=== PATIENT | male | born 1950 | race Caucasian/White ===

== ENCOUNTER → 2024-01-01 08:00 | Outpatient (REF) | payer OTHER, SELFPAY | LOC: HWRAD 08:00 | PROVIDERS: ATTENDING PHYSICIAN Student in an Organized Health Care Education/Training Program; FAMILY PHYSICIAN Family Medicine | DX: M25.571 Pain in right ankle and joints of right foot (principal) | CPT/HCPCS: 73700 ==

== ENCOUNTER 2024-02-23 06:04 | Day surgery (SDC) | payer OTHER, SELFPAY ==
[2024-02-09 11:31] LABS: Hematocrit 44.6 % (39.0-52.0); Hemoglobin 15.2 g/dL (13.0-18.0); Mean Corp Hgb Conc. 34.1 g/dL (33.0-37.0); Mean Corpuscular Hgb 32.6 pg (27.0-31.0); Mean Corpuscular Volume 95.7 fL (80.0-94.0); Mean Platelet Volume 9.4 fL (7.4-10.4); Platelet Count 267 10^3/uL (130-400); Red Blood Cell Count 4.66 10^6/uL (4.70-6.10); Red Cell Dist. Width 12.9 % (11.5-14.5); White Blood Cell Count 7.4 10^3/uL (4.8-10.8)
[2024-02-23] VITALS (10 sets, daily range): BP systolic 107–175; BP diastolic 46–95
[2024-02-23] MEDS: TYLENOL 1000 MG PO (06:22)
[2024-02-23] MEDS: CELEBREX 200 MG PO (06:22)
== END 2024-02-23 12:40 | disposition home or self-care (01) ==
LOC: SDS 06:04
PROVIDERS: ATTENDING PHYSICIAN Student in an Organized Health Care Education/Training Program; FAMILY PHYSICIAN Family Medicine
DX: M19.071 Primary osteoarthritis, right ankle and foot (principal)
CPT/HCPCS: 27702; 27687; 36415; 73610; 76000; 85027

== ENCOUNTER 2024-03-24 18:41 | Inpatient (IN) | payer OTHER, SELFPAY ==
[2024-03-24 13:47] VITALS: BP 133/69
[2024-03-24 14:17] LABS: % Basophils 0.5 % (0-2); % Eosinophils 0.8 % (0-6); % Immature Granulocytes 0.5 % (0-0.5); % Lymphocytes 4.5 % (20.5-51.1); % Neutrophils 90.7 % (42.2-75.2); Absolute Basophils 0.1 10^3/uL (0-0.2); Absolute Eosinophils 0.1 10^3/uL (0-0.7); Absolute Immature Granulocytes 0.1 10^3/uL (0-0.05); Absolute Lymphocytes 0.8 10^3/uL (1.2-3.4); Absolute Monocytes 0.5 10^3/uL (0.1-0.6); Absolute Neutrophils 15.3 10^3/uL (1.4-6.5); Hematocrit 41.7 % (39.0-52.0); Hemoglobin 14.1 g/dL (13.0-18.0); Mean Corp Hgb Conc. 33.8 g/dL (33.0-37.0); Mean Corpuscular Hgb 32.4 pg (27.0-31.0); Mean Corpuscular Volume 95.9 fL (80.0-94.0); Mean Platelet Volume 9.1 fL (7.4-10.4); Nucleated Red Blood Cells % 0 % (-); Platelet Count 301 10^3/uL (130-400); Red Blood Cell Count 4.35 10^6/uL (4.70-6.10); Red Cell Dist. Width 12.3 % (11.5-14.5); White Blood Cell Count 16.9 10^3/uL (4.8-10.8)
[2024-03-24 14:28] LABS: Lactic Acid 1.2 mmol/L (0.7-2.0)
[2024-03-24 14:30] LABS: ALT (SGPT) 19 U/L (0-50); AST (SGOT) 28 U/L (17-59); Albumin 4.1 g/dl (3.5-5.0); Alkaline Phosphatase 93 U/L (38-126); Blood Urea Nitrogen 17 mg/dl (9-20); Calcium 9.4 mg/dl (8.4-10.2); Carbon Dioxide 30 mmol/L (22-30); Chloride 99 mmol/L (98-107); Glucose 110 mg/dl (70-99); Potassium 4.1 mmol/L (3.5-5.1); Sodium 135 mmol/L (135-145); Total Bilirubin 0.7 mg/dl (0.2-1.3); Total Protein 6.5 g/dl (6.3-8.2); eGFR > 60.00
[2024-03-24 14:35] LABS: Urine Albumin Negative (Neg - Trace); Urine Bilirubin Negative (Negative); Urine Character Clear (Clear); Urine Color Yellow; Urine Glucose Negative (Negative); Urine Ketone Negative (Negative); Urine Leukocyte 1+ (Negative); Urine Nitrite Positive (Negative); Urine Occult Blood 3+ (Negative); Urine Specific Gravity 1.015 (<1.030); Urine Urobilinogen Negative (Neg - 1+)
[2024-03-24 14:42] LABS: Urine Squamous Cell 0-2 /LPF (Few)
[2024-03-24 14:43] LABS: Urine Red Blood Cell 40-50 /HPF (0-2); Urine White Cell 40-50 /HPF (0-5)
[2024-03-24 14:44] LABS: Urine Bacteria Moderate (Negative)
[2024-03-24 14:48] LABS: COVID-19 Antigen Negative (Negative)
[2024-03-24 15:04] VITALS: BP 130/54
--- NOTE | 2024-03-24 15:42 | ED.GENMED ---
History of Present Illness
General
Chief Complaint: Male Genito-Urinary Symptoms
Source: patient
Exam Limitations: none
Time Seen by Provider: 03/24/24 15:18
History of Present Illness
History of Present Illness:
73-year-old male otherwise healthy presents complaining of onset of urinary symptoms fever low back pain and vomiting starting this morning. He had an ankle replacement a month ago. He is due to have his sutures removed in his ankle next week. He
denies any increased pain in the ankle or swelling. Starting this morning he noticed increased urgency frequency and dysuria with foul-smelling urine. He also noted lower back pain however cannot recall which side it was. There was 1 episode of
vomiting associated with this. He was noted to have a fever on arrival. He denies pain or shortness of breath. No other complaints at this time
Past History
Past History
ED Past Medical History: Asthma and Other (Diverticulitis)
ED Past Surgical History: Other (Hernia repair)
Social History
Tobacco: Non-smoker
Alcohol: None
Drug: None
Personal:
Living: with family
Employment: Employed
Phy Exam
Physical Exam
Physical Exam:
General: Well-appearing male no acute respiratory distress
HEENT: Normocephalic atraumatic
Heart: Regular rate and rhythm no murmurs lungs: Clear no wheeze
Abdomen is soft nontender nondistended skin: The right ankle was unwrapped
. The sutures are intact. The incision looks well without surrounding erythema drainage or fluctuant
Extremities: No cyanosis
Course
Orders/Labs/Results
Orders:
Orders
03/24/24 14:07
COVID-19 Antigen Urgent
Source: Nasal Swab
Complete Blood Count/With Diff Urgent
Comprehensive Metabolic Panel Urgent
Lactic Acid Q4H
Comment: ON ICE, CANCEL 2ND ORDER IF FIRST LACTIC ACID LEVEL <2
Blood Culture Urgent
MINOO Source: Blood/Venous
Specimen Description:
Date Specimen was Collected: 03/24/24
Time Specimen was Collected: 13:50
Influenza A+B Rapid Molecular Urgent
MINOO Source: Nasal Swab
Specimen Description:
03/24/24 14:11
Urinalysis Reflex To Culture Urgent
Date Specimen was Collected: 03/24/24
Time Specimen was Collected: 13:50
Urine Microscopic Reflex Cult Urgent
Urine Culture Urgent
MINOO Source: U
Specimen Description:
Date Specimen was Collected: 03/24/24
Time Specimen was Collected: 13:50
03/24/24 15:40
CT Abd/pel Without Iv Or Oral Urgent
Comment:
Reason For Exam: low back pain, urinary symptoms, fever
0.9% Sodium Chloride 1000 ml [Nss] 1,000 ml IV BOLUS
Acetaminophen [Tylenol] 1,000 mg PO NOW STA
Abnormal Lab Results
03/24/24 03/24/24
14:07 14:11
WBC 16.9 H 10^3/uL
(4.8-10.8)
RBC 4.35 L 10^6/uL
(4.70-6.10)
MCV 95.9 H fL
(80.0-94.0)
MCH 32.4 H pg
(27.0-31.0)
Abs Immat Gran (auto) 0.1 H 10^3/uL
(0-0.05)
Absolute Neuts (auto) 15.3 H 10^3/uL
(1.4-6.5)
Absolute Lymphs (auto) 0.8 L 10^3/uL
(1.2-3.4)
Neutrophils % 90.7 H %
(42.2-75.2)
Lymphocytes % 4.5 L %
(20.5-51.1)
Glucose 110 H mg/dl
(70-99)
Ur Occult Blood Reflex 3+ A
(Negative)
Urine Nitrite (Reflex) Positive A
(Negative)
Leukocyte Esterase Rfl 1+ A
(Negative)
Urine RBC 40-50 A /HPF
(0-2)
Urine WBC (Reflex) 40-50 A /HPF
(0-5)
Urine Bacteria (Reflex) Moderate A
(Negative)
03/24/24 14:07
03/24/24 14:07
Vital Signs
Initial and Last Documented VS:
Initial Vital Signs
Temp Pulse Resp BP Pulse Ox
101.2 F H 79 18 133/69 133
03/24/24 13:47 03/24/24 13:47 03/24/24 13:47 03/24/24 13:47 03/24/24 13:47
Last Documented Vital Signs
Temp Pulse Resp BP Pulse Ox
100.5 F H 87 16 136/64 92
03/24/24 17:03 03/24/24 16:15 03/24/24 16:15 03/24/24 16:00 03/24/24 16:15
MDM/Problems Addressed
Differential Diagnosis Includes:
Patient with fever urinary symptoms and low back pain. Consider UTI versus kidney stone versus both. No sign of surgical site infection on exam. Temperature here elevated. White blood cell count and blood work is also elevated. Urinalysis
certainly concerning for UTI. Fluids ordered Rocephin ordered Tylenol ordered for fever. Will check CT of abdomen to evaluate for potential for kidney stone. Patient likely needs admission
*Critical Care Note
Total Time (30-74mins, 75-104mins- exclusive of procedures): Not Applicable
Update Note
Update Note:
Workup consistent with UTI. CT negative for kidney stone. Temperature improved slightly after Tylenol. Fluids ordered Tylenol ordered Rocephin ordered. Will admit to hospital for UTI
ED Attending Note
-
Portions of this chart may have been created with voice recognition software.� Occasional wrong word or��sound alike� substitutions may have occurred due to the inherent limitations of voice recognition software.
Discharge Plan
Departure
Patient Disposition: Admit
Date of Disposition: 03/24/24
Time of Disposition: 17:36
Admit to: Telemetry
Presentation/result/management discussed w/ accepting MD/DO: Hospitalist
Discharge Problem:
Acute UTI
Prescriptions:
No Action
fluticasone propionate 1 SPRAY spray,suspension
2 spray intranasal DAILYPRN PRN (Reason: nasal congestion, allergies)
pravastatin 40 mg Tablet
40 mg PO HS
tamsulosin 0.4 mg Capsule
0.4 mg PO DAILY
budesonide-formoterol [Symbicort] 160-4.5 mcg/actuation Hfa Aerosol Inhaler
1 - 2 puff INHALATION R BID
sildenafil 50 mg Tablet
50 mg PO DAILYPRN PRN (Reason: ED)
albuterol sulfate 2.5 mg /3 mL (0.083 %) Solution For Nebulization
2.5 mg INHALATION R Q6HPRN PRN (Reason: SOB)
albuterol sulfate 90 mcg/actuation Hfa Aerosol Inhaler
2 puff INHALATION R Q6HPRN PRN (Reason: SOB, Wheezes)
aspirin 325 mg Tablet
325 mg PO HS
gabapentin 300 mg Capsule
300 mg PO HS
ibuprofen 600 mg Tablet
1,800 mg PO DAILYPRN PRN (Reason: moderate pain)
Referrals:
Art Mtz MD [Family Provider] -
Interventions
Interventions:
*Risk Screen - Suicide Last Done: 03/24/24 15:54
*Neglect/Abuse Screening Last Done: 03/24/24 15:54
ED- Fall Risk Assessment Last Done: 03/24/24 15:55
ED-Male Genitourinary Assessment Last Done: 03/24/24 15:53
ED-Skin Assessment Last Done: 03/24/24 15:53
Discharge Date and Time
Print Language: [place]
[2024-03-24] MEDS: TYLENOL 1000 MG PO (15:46)
[2024-03-24] MEDS: NSS 1000 IV ×2 (15:47→22:22)
[2024-03-24 15:49] VITALS: BP 137/60
[2024-03-24 16:00] VITALS: BP 136/64
[2024-03-24] MEDS: ROCEPHIN 1000 MG IV (17:53)
--- NOTE | 2024-03-24 18:16 | HPS.HSE ---
Family Physician
-
Family Physician: Art Tejeda [facility]
Chief Complaint
-
malaise, weakness, fever
History of Present Illness
73yo M M with COPD, BPH, HLD, recent R ankle replacement on 02/24/24 by in came with 1 day of nausea, fevers and malaise, found leukocytosis in ED. ALso complained of foul smelling urine. UA concerning for infection. CT showed
non-obstructing nephrolithiasis and possible renal cyst that will need to be followed up with outpatient MRI. Patient feeling much better after fluids and Abx
Medical History
Past Medical History
Past Medical History: Reports Other
Additional Past Medical History:
see above
Past Surgical History: Reports Other
Additional Past Surgical History:
see above
Social History
Tobacco: Non-smoker
Alcohol: Occasional
Drug: None
Family History
Family History: Not pertinent
Allergies / Home Medications
Allergies reflects when Allergies were last updated in [employer].
Home Medications with original date entered in [employer]
Allergy/Medication List:
Allergies
Allergy/AdvReac Type Severity Reaction Status Date / Time
pollen extracts Allergy Congestion Verified 02/23/24 06:07
Home Medications
fluticasone propionate 50 mcg/actuation nasal spray,suspension 2 spray intranasal DAILYPRN PRN nasal congestion, allergies 03/01/17
budesonide-formoterol HFA 160 mcg-4.5 mcg/actuation aerosol inhaler (Symbicort) 1 - 2 puff inhalation R BID 01/02/24
pravastatin 40 mg tablet 40 mg PO HS 01/02/24
sildenafil 50 mg tablet 50 mg PO DAILYPRN PRN ED 01/02/24
tamsulosin 0.4 mg capsule 0.4 mg PO DAILY 01/02/24
albuterol sulfate 2.5 mg/3 mL (0.083 %) solution for nebulization 2.5 mg inhalation R Q6HPRN PRN SOB 02/16/24
albuterol sulfate 90 mcg/actuation aerosol inhaler 2 puff inhalation R Q6HPRN PRN SOB, Wheezes 02/16/24
aspirin 325 mg tablet 325 mg PO HS 03/24/24
gabapentin 300 mg capsule 300 mg PO HS 03/24/24
ibuprofen 600 mg tablet 1,800 mg PO DAILYPRN PRN moderate pain 03/24/24
Review of Systems
-
History Source: Patient
A 12 point ROS was completed and negative except as noted: Yes
Constitutional: Reports Fever and Fatigue
: Reports Dysuria; Denies Flank Pain
Physical Exam
Vital Signs
Vital Signs
Temp Pulse Resp BP Pulse Ox
100.5 F H 87 16 136/64 92
03/24/24 17:03 03/24/24 16:15 03/24/24 16:15 03/24/24 16:00 03/24/24 16:15
Physical Exam
General: No Apparent Distress
HEENT: NormoCephalic, Anicteric and Moist mucous membranes
Respiratory: Clear; No Wheezes, Rales or Crackles
Cardiac: S1/S2 and Regular Rhythm; No Murmur
GI: Soft, Non Tender and Non Distended
Genito-urinary: Turbid Urine
Musculoskeletal: No Clubbing, No Cyanosis and Other (R toes edema)
Skin: Warm; No Dry or Rash
Neuro: Awake, Alert, Oriented and AO x 3
Psych: Calm
Laboratory Results
-
03/24/24 14:07
03/24/24 14:07
Laboratory Results
Lactic Acid 1.2 mmol/L (0.7-2.0) 03/24/24 14:07
Lactic Acid Cancelled 03/24/24 14:07
Total Bilirubin 0.7 mg/dl (0.2-1.3) 03/24/24 14:07
AST 28 U/L (17-59) 03/24/24 14:07
ALT 19 U/L (0-50) 03/24/24 14:07
Alkaline Phosphatase 93 U/L (38-126) 03/24/24 14:07
Data Reviewed
-
CT Scan: Report Reviewed by me
Lab Data: Labs Reviewed by me
Impression/Plan
-
A/P
#Fever, leukocytosis, 2/2 UTI
Ceftriaxone
Ucx
Bcx
#Recent R ankle replacement
PT/OT
sutures scheduled to be removed on 03/29/24
Scar is well healing well, no exudate
transient swelling noted by patient, but might be 2/2 increased ambulation
No signs of joint warmth or redness, discussed with podiatry, they will follow while inpatient. Will do XR and check ESR/CRP at their request
#COPD not in exacerbation
#BPH
#Neuropathy
watch for urinary retention
cont home meds
#hepatic cysts
no follow up advised
#3mm L non-obstructing nephrolithiasis
hydration
#Hx of spinal fusion
#DJD
tylenol
PT/OT
DVT ppx - on ASA 325mg as per podiatry, reasonable to cont
Full code
I have spent at least 57min reviewing chart, test results, communication with consultants and direct patient care
[2024-03-24 20:47] LABS: Erythrocyte Sed Rate 4 mm/hour (0-20)
[2024-03-24 21:24] VITALS: BMI 30.6
[2024-03-24 21:28] VITALS: BP 146/77
[2024-03-24] MEDS: SYMBICORT 160/4.5 MCG INHALER 2 PUFF INH (21:36)
--- NOTE | 2024-03-24 22:22 | W.PN.UPDATE ---
Update Note
Progress Note Update
pt with recent ankle replacement surgery. Taking asa 325mg hs for dvt prophylaxisis. Would prefer to continue this mgmt and not take heparin injections. Will change.
[2024-03-24] MEDS: NEURONTIN 300 MG PO (22:23)
[2024-03-24] MEDS: PRAVACHOL 40 MG PO (22:23)
[2024-03-24] MEDS: ZOFRAN 4 MG IV (22:23)
[2024-03-24] MEDS: TYLENOL 650 MG PO (22:25)
[2024-03-24 22:40] VITALS: BP 152/75
[2024-03-24] MEDS: ASPIRIN 325 MG PO (22:43)
--- NOTE | 2024-03-24 23:26 | PTCARENOTE ---
Patient arrive to unit via stretcher around 21:15 with dx of UTI. AAOX3 but forgetful. Bed alarm applied. Patient had recent ankle surgery here by Dr. Rajan and is wearing mario wrap dressing that both patient and daughter refused to allow RN to
unwrap to assess incisions. Patient has podiatry consult ordered. + cms to RLE. RLE elevated in bed with pillows. Call albright within reach. Oriented to unit.
[2024-03-25 07:20] VITALS: BP 110/66
[2024-03-25] MEDS: SYMBICORT 160/4.5 MCG INHALER 2 PUFF INH ×2 (07:29→19:57)
[2024-03-25] MEDS: TYLENOL 650 MG PO (08:33)
[2024-03-25] MEDS: FLOMAX 0.4 MG PO (08:34)
[2024-03-25 08:45] LABS: Hematocrit 37.3 % (39.0-52.0); Hemoglobin 12.6 g/dL (13.0-18.0); Mean Corp Hgb Conc. 33.8 g/dL (33.0-37.0); Mean Corpuscular Hgb 32.6 pg (27.0-31.0); Mean Corpuscular Volume 96.4 fL (80.0-94.0); Mean Platelet Volume 9.5 fL (7.4-10.4); Platelet Count 246 10^3/uL (130-400); Red Blood Cell Count 3.87 10^6/uL (4.70-6.10); Red Cell Dist. Width 12.9 % (11.5-14.5); White Blood Cell Count 22.3 10^3/uL (4.8-10.8)
[2024-03-25 09:50] VITALS: BP 118/70
[2024-03-25 10:08] VITALS: BP 118/70; PULSE 74
[2024-03-25 10:08] LABS: Absolute Neutrophils -Man Diff 20.2 10^3/uL (1.4-6.5); Band Neutrophils 10 % (0-3); Lymphocytes 6 % (20-51); Monocytes 3 % (2-9); Normal RBC Morphology Yes; Platelets Checked Yes; Segmented Neutrophils 81 % (42-75)
[2024-03-25 10:09] LABS: Total Cells Counted 100
[2024-03-25 10:18] LABS: ALT (SGPT) 17 U/L (0-50); AST (SGOT) 26 U/L (17-59); Albumin 3.2 g/dl (3.5-5.0); Alkaline Phosphatase 69 U/L (38-126); Blood Urea Nitrogen 17 mg/dl (9-20); Calcium 8.4 mg/dl (8.4-10.2); Carbon Dioxide 23 mmol/L (22-30); Chloride 101 mmol/L (98-107); Estimated Creatinine Clearance 89 ml/min; Glucose 113 mg/dl (70-99); Sodium 134 mmol/L (135-145); Total Bilirubin 0.9 mg/dl (0.2-1.3); Total Protein 5.7 g/dl (6.3-8.2); eGFR > 60.00
--- NOTE | 2024-03-25 10:19 | CON.SURG ---
Surgical Consultation
-
Chief Complaint
-
malaise, weakness, fever
History of Present Illness
73yo M M with COPD, BPH, HLD, recent R ankle replacement on 02/24/24 by in came with 1 day of nausea, fevers and malaise, found leukocytosis in ED. ALso complained of foul smelling urine. UA concerning for infection. CT showed
non-obstructing nephrolithiasis and possible renal cyst that will need to be followed up with outpatient MRI. Patient feeling much better after fluids and Abx. Right ankle has been healing well with no redness, no pain, and only mild swelling.
Medical History
Past Medical History
Past Medical History: Reports Other
Additional Past Medical History:
see above
Past Surgical History: Reports Other
Additional Past Surgical History:
see above
Social History
Tobacco: Non-smoker
Alcohol: Occasional
Drug: None
Family History
Family History: Not pertinent
Allergies / Home Medications
Allergies reflects when Allergies were last updated in [employer].
Home Medications with original date entered in [employer]
Allergy/Medication List:
Allergies
Allergy/AdvReac Type Severity Reaction Status Date / Time
pollen extracts Allergy Congestion Verified 02/23/24 06:07
Home Medications
fluticasone propionate 50 mcg/actuation nasal spray,suspension 2 spray intranasal DAILYPRN PRN nasal congestion, allergies 03/01/17
budesonide-formoterol HFA 160 mcg-4.5 mcg/actuation aerosol inhaler (Symbicort) 1 - 2 puff inhalation R BID 01/02/24
pravastatin 40 mg tablet 40 mg PO HS 01/02/24
sildenafil 50 mg tablet 50 mg PO DAILYPRN PRN ED 01/02/24
tamsulosin 0.4 mg capsule 0.4 mg PO DAILY 01/02/24
albuterol sulfate 2.5 mg/3 mL (0.083 %) solution for nebulization 2.5 mg inhalation R Q6HPRN PRN SOB 02/16/24
albuterol sulfate 90 mcg/actuation aerosol inhaler 2 puff inhalation R Q6HPRN PRN SOB, Wheezes 02/16/24
aspirin 325 mg tablet 325 mg PO HS 03/24/24
gabapentin 300 mg capsule 300 mg PO HS 03/24/24
ibuprofen 600 mg tablet 1,800 mg PO DAILYPRN PRN moderate pain 03/24/24
Review of Systems
-
History Source: Patient
A 12 point ROS was completed and negative except as noted: Yes
Constitutional: Reports Fever and Fatigue
: Reports Dysuria; Denies Flank Pain
Physical Exam
Vital Signs
Vital Signs
Temp Pulse Resp BP Pulse Ox
100.5 F H 87 16 136/64 92
03/24/24 17:03 03/24/24 16:15 03/24/24 16:15 03/24/24 16:00 03/24/24 16:15
Physical Exam
General: No Apparent Distress
HEENT: NormoCephalic, Anicteric and Moist mucous membranes
Respiratory: Clear; No Wheezes, Rales or Crackles
Cardiac: S1/S2 and Regular Rhythm; No Murmur
GI: Soft, Non Tender and Non Distended
Genito-urinary: Turbid Urine
Musculoskeletal: No Clubbing, No Cyanosis and Other (R toes edema)
Skin: Warm; No Dry or Rash
Neuro: Awake, Alert, Oriented and AO x 3
Psych: Calm
RLE physical exam
DP/PT pulses 2/4, capillary refill < 3 seconds
Anterior ankle and posterior calf incision well coapted with no surrounding erythema, cellulitis, fluctuance, or streaking
Ankle ROM smooth and painless
Sutures intact
Laboratory Results
-
03/24/24 14:07
03/24/24 14:07
Laboratory Results
Lactic Acid 1.2 mmol/L (0.7-2.0) 03/24/24 14:07
Lactic Acid Cancelled 03/24/24 14:07
Total Bilirubin 0.7 mg/dl (0.2-1.3) 03/24/24 14:07
AST 28 U/L (17-59) 03/24/24 14:07
ALT 19 U/L (0-50) 03/24/24 14:07
Alkaline Phosphatase 93 U/L (38-126) 03/24/24 14:07
Data Reviewed
-
CT Scan: Report Reviewed by me
Lab Data: Labs Reviewed by me
Impression/Plan
73 yo M with PMH of R ankle replacement presents to hospital with leukocytosis, concerning for UTI. Right ankle radiographs and physical exam show no signs of acute infection
-Patient can continue NWB to RLE in CAM boot
-Right ankle sutures to remain intact, no signs of local infection
-Patient to follow up 03/29 as outpatient
-Will continue to follow
[2024-03-25] MEDS: ZOSYN 50 IV ×3 (10:44→21:04)
[2024-03-25] MEDS: NSS 1000 IV ×2 (10:46→23:00)
[2024-03-25 11:07] LABS: Hepatitis C Antibody Negative (Negative)
--- NOTE | 2024-03-25 11:21 | W.PN.HOSP.TC ---
Today's Communication/Plan
-
COnt Abx, pending 24h defervescence and final Cx
Assessment / Plan
Assessment / Plan
73yo M M with COPD, BPH, HLD, recent R ankle replacement on 02/24/24 by in came with 1 day of nausea, fevers and malaise, found leukocytosis in ED. ALso complained of foul smelling urine. UA concerning for infection. CT showed
non-obstructing nephrolithiasis and possible renal cyst that will need to be followed up with outpatient MRI. Patient feeling much better after fluids and Abx
A/P
#Fever, leukocytosis, 2/2 UTI
Zosyn (persistent worsening leukocytosis on Rocephin)
Ucx - E.coli
Bcx NTD
#Recent R ankle replacement
PT/OT
sutures scheduled to be removed on 03/29/24
Scar is well healing well, no exudate
transient swelling noted by patient, but might be 2/2 increased ambulation
No signs of joint warmth or redness, discussed with podiatry: Patient can continue NWB to RLE in CAM boot
, they will follow while inpatient.
ankle XR: Right total ankle arthroplasty without evidence of hardware complication
ESR WNL CRP minimally elevated
#COPD not in exacerbation
#BPH
#Neuropathy
watch for urinary retention
cont home meds
#hepatic cysts
no follow up advised
#3mm L non-obstructing nephrolithiasis
hydration
#Hx of spinal fusion
#DJD
tylenol
PT/OT
DVT ppx - on ASA 325mg as per podiatry, reasonable to cont
Full code
I have spent at least 57min reviewing chart, test results, communication with consultants and direct patient care
Anticipated Discharge: 24 - 48 hours
Subjective/Interval History
-
Date of Service: March 25, 2024
Objective Data
-
Labs:
Laboratory Results
03/25/24
07:35
WBC 22.3 H
Hgb 12.6 L
Hct 37.3 L
Plt Count 246
Sodium 134 L
Potassium 4.0
Chloride 101
Carbon Dioxide 23
BUN 17
Creatinine 0.8
Glucose 113 H
Calcium 8.4
Total Bilirubin 0.9
AST 26
ALT 17
Alkaline Phosphatase 69
Vital Signs:
Vital Signs
Temp Pulse Resp BP Pulse Ox
98.0 F 76 16 110/66 94
03/25/24 10:00 03/25/24 07:33 03/25/24 07:33 03/25/24 07:20 03/25/24 07:33
I&O
03/24/24 03/25/24 03/26/24
06:59 06:59 06:59
Intake Total 1280 / 1280
Output Total 500 / 500
Balance 780 / 780
Review of Systems
-
History Source: Patient
All other systems: Reviewed and negative
Physical Exam
-
General: No Apparent Distress
HEENT: Normocephalic
GI: Soft, Nontender and Nondistended
Neuro: Awake, Alert, Oriented and AO x 3
Psych: Calm
--- NOTE | 2024-03-25 12:26 | CM ---
Patient seen bedside.
IA completed.
Patient lives with spouse in 2 story home with 2 steps to enter.
patient at baseline drives, retired.
patient s/p ankle replacement in January and getting around with a Knee scooter.
Currently sleeping on the 1st floor, can get up the steps if needed on knees/buttocks.
Patient has not been getting therapy, is still NWB.
PCP: Dr Mtz
[facility]
Plan: home no needs anticiapted, spouse will transport.
[2024-03-25 15:39] VITALS: BP 116/56
[2024-03-25] MEDS: ASPIRIN 325 MG PO (21:04)
[2024-03-25] MEDS: PRAVACHOL 40 MG PO (21:04)
[2024-03-25] MEDS: NEURONTIN 300 MG PO (21:04)
[2024-03-25 23:43] VITALS: BP 131/69
[2024-03-26] MEDS: ZOSYN 50 IV ×2 (03:44→10:50)
[2024-03-26 07:00] VITALS: BP 139/74
[2024-03-26] MEDS: NSS 1000 IV (07:52)
[2024-03-26] MEDS: FLOMAX 0.4 MG PO ×2 (07:52→12:11)
[2024-03-26] MEDS: SYMBICORT 160/4.5 MCG INHALER 2 PUFF INH ×2 (08:14→19:57)
[2024-03-26] MEDS: TYLENOL 650 MG PO ×2 (08:51→14:53)
[2024-03-26 09:28] LABS: Blood Urea Nitrogen 17 mg/dl (9-20); Calcium 8.4 mg/dl (8.4-10.2); Carbon Dioxide 25 mmol/L (22-30); Chloride 103 mmol/L (98-107); Potassium 3.9 mmol/L (3.5-5.1); Sodium 136 mmol/L (135-145)
[2024-03-26 09:36] LABS: % Basophils 0.4 % (0-2); % Eosinophils 0.3 % (0-6); % Immature Granulocytes 1.1 % (0-0.5); % Lymphocytes 5.4 % (20.5-51.1); % Monocytes 3.9 % (1.7-9.3); % Neutrophils 88.9 % (42.2-75.2); Absolute Basophils 0.1 10^3/uL (0-0.2); Absolute Eosinophils 0.1 10^3/uL (0-0.7); Absolute Immature Granulocytes 0.2 10^3/uL (0-0.05); Absolute Lymphocytes 0.9 10^3/uL (1.2-3.4); Absolute Monocytes 0.7 10^3/uL (0.1-0.6); Hematocrit 40.5 % (39.0-52.0); Hemoglobin 13.2 g/dL (13.0-18.0); Mean Corp Hgb Conc. 32.6 g/dL (33.0-37.0); Mean Corpuscular Hgb 32.2 pg (27.0-31.0); Mean Corpuscular Volume 98.8 fL (80.0-94.0); Mean Platelet Volume 9.5 fL (7.4-10.4); Nucleated Red Blood Cells % 0 % (-); Platelet Count 237 10^3/uL (130-400); White Blood Cell Count 16.8 10^3/uL (4.8-10.8)
[2024-03-26 09:38] LABS: Estimated Creatinine Clearance 89 ml/min; Glucose 104 mg/dl (70-99); eGFR > 60.00
--- NOTE | 2024-03-26 10:28 | PN.CDI ---
Addendum entered and electronically signed by Brice Rodriguez MD 04/05/24 16:14:
no sepsis
Original Note:
CDI
- -
CDI:
Physician Documentation Request
Admit Date: 03/24/24 18:41
Dear Doctor Jennifer,
Please review the following and provide your response in the progress notes.
Clinical Indicators:
Pt admitted with UTI
Documented per H&P and progress notes 03/25, '#Fever, leukocytosis, 2/2 UTI Zosyn Ucx - E.coli...'
On admission WBC 16.9, Tmax 101.2, Respirations 31
Please clarify which of the following most accurately describes the status of the patient's infection:
Sepsis-POA
- Systemic manifestations of infection, with 2 or more SIRS criteria which include:
- Fever >100.4 degrees F or hypothermia < 96.8 degrees F
- Leukocytosis - WBC > 12,000 or leukopenia - WBC < 4,000 or > 10% bands
- Tachycardia > 90 beats per minute
- Tachypnea - RR > 20 breaths per minute or PaCO2 , 32mmHg
Source: Merck Manual 2012
UTI only , Without Systemic Illness
Other ( please specify)
Use of terms such as suspected, likely, concern for, or probable (associated with a specific diagnosis that is being evaluated, monitored, or treated as if it exists) are acceptable and can be coded in the inpatient setting, when documented at the
time of discharge.
Thank you,
Ariane Barrientos RN
CDI Specialist
[facility]
Please use your independent medical judgment in providing your response.
[2024-03-26] MEDS: ROCEPHIN 1000 MG IV (12:40)
[2024-03-26] MEDS: STERILE WATER FOR INJECTION 10 ML IV (12:40)
--- NOTE | 2024-03-26 13:23 | W.PN.HOSP.TC ---
Addendum entered and electronically signed by Brice Rodriguez MD 03/26/24 14:29:
1st degree avb noted
Addendum entered and electronically signed by Brice Rodriguez MD 03/26/24 13:39:
With concern for prostatitis - Urology recommended levaquin. WIll check QTc first.
Original Note:
Today's Communication/Plan
-
ceftriaxone
Urology
Assessment / Plan
Assessment / Plan
73yo M M with COPD, BPH, HLD, recent R ankle replacement on 02/24/24 by in came with 1 day of nausea, fevers and malaise, found leukocytosis in ED. ALso complained of foul smelling urine. UA concerning for infection. CT showed
non-obstructing nephrolithiasis and possible renal cyst that will need to be followed up with outpatient MRI. Patient feeling much better after fluids and Abx, however has prolonged fevers, raising suspicion for prostatitis
A/P
#Fever, leukocytosis, 2/2 UTI
#Non-obstructing nephrolithiasis
#BPH
Ucx - E.coli, pansensitive - switch back to Rocephin
Bcx NTD
with persistent fevers -- cannot rule out prostatitis
Check CG/chlam
Urology cosnult
#Recent R ankle replacement
PT/OT
sutures scheduled to be removed on 03/29/24
Scar is well healing well, no exudate
transient swelling noted by patient, but might be 2/2 increased ambulation
No signs of joint warmth or redness, discussed with podiatry: Patient can continue NWB to RLE in CAM boot
ankle XR: Right total ankle arthroplasty without evidence of hardware complication
ESR WNL CRP minimally elevated
#COPD not in exacerbation
#BPH
#Neuropathy
watch for urinary retention
cont home meds
#hepatic cysts
no follow up advised
#3mm L non-obstructing nephrolithiasis
hydration
#Hx of spinal fusion
#DJD
tylenol
PT/OT
DVT ppx - on ASA 325mg as per podiatry, reasonable to cont
Full code
I have spent at least 57min reviewing chart, test results, communication with consultants and direct patient care
Anticipated Discharge: > 48 hours
Subjective/Interval History
-
Date of Service: March 26, 2024
Objective Data
-
Labs:
Laboratory Results
03/26/24
08:11
WBC 16.8 H
Hgb 13.2
Hct 40.5
Plt Count 237
Sodium 136
Potassium 3.9
Chloride 103
Carbon Dioxide 25
BUN 17
Creatinine 0.8
Glucose 104 H
Calcium 8.4
Vital Signs:
Vital Signs
Temp Pulse Resp BP Pulse Ox
101 F H 78 16 139/74 95
03/26/24 07:00 03/26/24 08:15 03/26/24 08:15 03/26/24 07:00 03/26/24 09:00
I&O
03/25/24 03/26/24 03/27/24
06:59 06:59 06:59
Intake Total 1280 / 1280 2640 / 2640 480 / 480
Output Total 500 / 500 1605 / 1605 650 / 650
Balance 780 / 780 1035 / 1035 -170 / -170
Review of Systems
-
History Source: Patient
All other systems: Reviewed and negative
Physical Exam
-
General: No Apparent Distress
HEENT: Normocephalic
Respiratory: Clear to Auscultation
GI: Soft, Nontender, Nondistended and Other (pain in L inguinal area without bulging )
Skin: Warm
Neuro: Awake, Alert, Oriented and AO x 3
Psych: Calm
[2024-03-26 15:00] VITALS: BP 135/71
--- NOTE | 2024-03-26 16:19 | CON.ID ---
Consultation
-
Date/Time Consultation Requested: 03/26/2024 1337
Date/Time Consultation Performed: 03/26/2024 1615
Requesting Provider: Dr. Rodriguez
Performing Provider: Dr. Kinsey
Reason for Consultation: Complicated urinary tract infection; ?Prostatitis
Chief Complaint / Past History
History of Present Illness
Paco Kauffman is a 73-year-old man being evaluated at the request of Dr. Rodriguez in regards to complicated urinary tract infection. History is obtained from chart review, along with patient interview.
The patient recently underwent a right ankle replacement on 02/22/2024, performed by Dr. Rajan. He reports that he did well since that time, but on 03/24 he developed dysuria without hematuria. He additionally felt quite weak, and he reported to
the ER some nausea along with fevers and generalized malaise. He also had admitted to some foul-smelling urine.
Workup in the emergency room revealed a leukocytosis, and CT imaging revealed possible cystitis and nephrolithiasis in the left kidney. He was empirically started on antibiotics (ceftriaxone) and then switched to Zosyn. He evidently has been
evaluated by urology who is suggested to transition to levofloxacin, which he is now on.
At present, he denies any dysuria. He is febrile to 101 degrees, though.
Past History
Additional Past Medical History:
Asthma
Diverticulitis
Additional Past Surgical History:
Right ankle replacement
Hernia repair
Allergy History:
pollen extracts Allergy (Verified 02/23/24 06:07)
Congestion
Medications Reviewed: Yes
Current Antibiotics:
Levofloxacin 750 mg IV every 24 hours
Social History
Tobacco: Non-Smoker
Alcohol: None
Drug: None
Personal:
Living: With Family
Employment: Retired
Family History
Family History: Not Pertinent
Review of Systems
Vital Signs
Temp Pulse Resp BP Pulse Ox
101 F H 78 16 139/74 95
03/26/24 07:00 03/26/24 08:15 03/26/24 08:15 03/26/24 07:00 03/26/24 09:00
Physical Exam
Physical Exam
Constitutional: No Acute Distress, Comfortable and Non-toxic
Eyes: No Conjunctival Hemorrhage and Sclera Anicteric
Oral: No Thrush and No Ulcers
Cardiovascular: Regular Rate and S1/S2; Negative S3/S4
Pulmonary: Clear; Negative Wheezes, Rales or Rhonchi
Gastrointestinal: Soft, Non Tender, Non Distended, Normal Bowel Sounds, No Rebound and No Guarding
Genito-Urinary: Negative Dumont, Suprapubic Tenderness or CVA Tenderness
Extremities: Negative Edema, Cyanosis, Erythema or Calf Swelling
Wound: Other (Right ankle and distal leg wrapped in Juan wrap.)
Neurological: Awake and Alert
Psychological: Calm
Lab / Diagnostic Study Results
03/26/24 08:11
03/26/24 08:11
Abs Immat Gran (auto) 0.2 10^3/uL (0-0.05) H 03/26/24 08:11
Absolute Neuts (auto) 15.0 10^3/uL (1.4-6.5) H 03/26/24 08:11
Absolute Lymphs (auto) 0.9 10^3/uL (1.2-3.4) L 03/26/24 08:11
Absolute Monos (auto) 0.7 10^3/uL (0.1-0.6) H 03/26/24 08:11
Absolute Basos (auto) 0.1 10^3/uL (0-0.2) 03/26/24 08:11
Total Counted 100 03/25/24 07:35
Immature Gran % 1.1 % (0-0.5) H 03/26/24 08:11
Neutrophils % 88.9 % (42.2-75.2) H 03/26/24 08:11
Lymphocytes % 5.4 % (20.5-51.1) L 03/26/24 08:11
Monocytes % 3.9 % (1.7-9.3) 03/26/24 08:11
Eosinophils % 0.3 % (0-6) 03/26/24 08:11
Basophils % 0.4 % (0-2) 03/26/24 08:11
Abs Neuts (Manual) 20.2 10^3/uL (1.4-6.5) H 03/25/24 07:35
Segmented Neutrophils 81 % (42-75) H 03/25/24 07:35
Band Neutrophils 10 % (0-3) H 03/25/24 07:35
Lymphocytes (Manual) 6 % (20-51) L 03/25/24 07:35
ESR 4 mm/hour (0-20) 03/24/24 14:07
Lactic Acid 1.2 mmol/L (0.7-2.0) 03/24/24 14:07
Lactic Acid Cancelled 03/24/24 14:07
C-Reactive Protein 11.50 mg/L (0.0-10.00) H 03/24/24 14:07
Ur Squamous Epith Cells 0-2 /LPF (Few) 03/24/24 14:11
Microbiology Results
Micro:
03/26/24 13:03 Chlamydia trachomatis (PCR) - Final
Urine Neisseria gonorrhoeae (PCR) - Final
03/24/24 14:07 Blood Culture - Preliminary
Blood/Venous No Growth in 48 hours- Final report to follow
03/24/24 14:11 Urine Culture - Final
Urine Escherichia coli
03/24/24 18:56 Blood Culture - Preliminary
Blood/Venous No Growth in 24 hours- Final report to follow
03/24/24 14:07 Influenza Types A & B (BRANDIN) - Final
Nasal Swab Negative for Influenza A & B, NAAT
Negative results must be combined with clinical observations
and patient history.
Nucleic Acid Amplification test (NAAT)performed on the
[employer] ID NOW platform.
Urine Culture Final 03/24/24
CC: Greater than 100,000 CFU/ML Escherichia coli
Organism 1 Escherichia coli
1. Escherichia coli
M.I.C. RX
--------- ---
Amoxicillin/Potas. Clavulanate <=8/4 S
Ampicillin <=8 S
Ampicillin/Sulbactam <=4/2 S
Aztreonam <=4 S
Cefazolin <=2 S
Ertapenem <=0.5 S
Ciprofloxacin <=0.25 S
Gentamicin <=2 S
Meropenem <=1 S
Nitrofurantoin-Urine Only <=32 S
Piperacillin/Tazobactam <=8 S
Tetracycline <=4 S
Tobramycin <=2 S
Trimethoprim/Sulfamethoxazole <=2/38 S
Imaging:
03/24/2024 CT abdomen/pelvis without contrast: Mild circumferential urinary bladder wall thickening which may be underdistention or possible cystitis. A 3 mm nonobstructing stone is in the superior pole of left kidney. Colonic diverticulosis
without evidence of acute diverticulitis. Please see full dictation for additional detail.
Assessment / Plan
Fevers
Suspected complicated urinary tract infection
Suspected prostatitis
Leukocytosis
S/p recent right ankle surgery
Asthma
Diverticulitis
Recommendations:
Patient has been started on Levaquin. Recommend continuing for now.
Check PSA in AM.
Follow white count and temperature curve.
[2024-03-26] MEDS: LEVAQUIN 150 IV (16:44)
[2024-03-26] MEDS: NEURONTIN 300 MG PO (21:36)
[2024-03-26] MEDS: PRAVACHOL 40 MG PO (21:36)
[2024-03-26] MEDS: ASPIRIN 325 MG PO (21:36)
[2024-03-26 23:26] VITALS: BP 140/80
[2024-03-27 07:00] VITALS: BP 143/78
[2024-03-27 07:22] LABS: % Basophils 0.9 % (0-2); % Eosinophils 2.6 % (0-6); % Immature Granulocytes 1.5 % (0-0.5); % Lymphocytes 12.9 % (20.5-51.1); % Neutrophils 74.1 % (42.2-75.2); Absolute Basophils 0.1 10^3/uL (0-0.2); Absolute Eosinophils 0.2 10^3/uL (0-0.7); Absolute Immature Granulocytes 0.1 10^3/uL (0-0.05); Absolute Lymphocytes 1.1 10^3/uL (1.2-3.4); Absolute Monocytes 0.7 10^3/uL (0.1-0.6); Absolute Neutrophils 6.5 10^3/uL (1.4-6.5); Mean Corp Hgb Conc. 33.3 g/dL (33.0-37.0); Mean Corpuscular Hgb 32.2 pg (27.0-31.0); Mean Corpuscular Volume 96.5 fL (80.0-94.0); Mean Platelet Volume 9.5 fL (7.4-10.4); Nucleated Red Blood Cells % 0 % (-); Platelet Count 223 10^3/uL (130-400); Red Blood Cell Count 4.04 10^6/uL (4.70-6.10); Red Cell Dist. Width 12.6 % (11.5-14.5); White Blood Cell Count 8.8 10^3/uL (4.8-10.8)
[2024-03-27] MEDS: FLOMAX 0.8 MG PO (08:19)
[2024-03-27] MEDS: SYMBICORT 160/4.5 MCG INHALER 2 PUFF INH ×2 (09:15→20:44)
--- NOTE | 2024-03-27 09:15 | CONS.URO ---
Addendum entered and electronically signed by Odilon Nielsen MD 03/27/24 10:54:
Would NOT advise checking level in context of active and confirmed E. Coli cUTI and suspected bacterial prostatitis.
PSA 66 on 03/27 labs - expect false elevation w/ infectious and inflammatory changes.
Annual PSAs checked w/ PCP (Dr. Mtz) WNL.
Original Note:
Consultation
-
Requesting Provider: Jennifer
Performing Provider: Gia
Reason for Consultation: acute bacterial prostatitis
Medical History
History of Present Illness
73M presenting to with cUTI.
UCx => >100k E. Coli (tyson-sensitive).
No prior h/o UTIs.
s/p right ankle replacement 02/22/24 (Dr. Rajan) and non-ambulatory using scooter for mobility.
03/24 => new onset dysuria, no hematuria.
Noted foul-smelling urine, fevers, weakness, and generalized malaise.
On IV Zosyn since admission - still febrile to 101F 03/26.
Of note, saw urologist 2-3 yrs ago @[facility] for BPH w/ LUTS.
PSA levels checked annually w/ PCP (Kennedy) - WNL.
Past Medical History
Past Medical History: Asthma, COPD and Other (hyperlipidemia, BPH (on tamsulosin))
Past Surgical History: Other (hernia surgery, right ankle replacement (01/2024))
Social History
Tobacco: Non-smoker
Alcohol: Occasional
Drug: None
Personal:
Living: With Family
Employment: Retired
Family History
Family History: Reviewed & Not Pertinent
Allergies/Home Medications
Allergies
Allergy/AdvReac Type Severity Reaction Status Date / Time
pollen extracts Allergy Congestion Verified 02/23/24 06:07
Home Medications
�Medication �Instructions �Recorded �Confirmed �Type
fluticasone propionate 50 2 spray intranasal DAILYPRN PRN 03/01/17 03/24/24 History
mcg/actuation nasal nasal congestion, allergies
spray,suspension
budesonide-formoterol HFA 160 1 - 2 puff inhalation R BID 01/02/24 03/24/24 History
mcg-4.5 mcg/actuation aerosol Lung/Breathing Issues
inhaler (Symbicort)
pravastatin 40 mg tablet 40 mg PO HS High Cholesterol 01/02/24 03/24/24 History
sildenafil 50 mg tablet 50 mg PO DAILYPRN PRN ED 01/02/24 03/24/24 History
tamsulosin 0.4 mg capsule 0.4 mg PO DAILY Urinary Issue 01/02/24 03/24/24 History
albuterol sulfate 2.5 mg/3 mL 2.5 mg inhalation R Q6HPRN PRN SOB 02/16/24 03/24/24 History
(0.083 %) solution for nebulization
albuterol sulfate 90 mcg/actuation 2 puff inhalation R Q6HPRN PRN 02/16/24 03/24/24 History
aerosol inhaler SOB, Wheezes
aspirin 325 mg tablet 325 mg PO HS Blood Clot 03/24/24 03/24/24 History
Prevention/Tx
gabapentin 300 mg capsule 300 mg PO HS Neurological Condition 03/24/24 03/24/24 History
ibuprofen 600 mg tablet 1,800 mg PO DAILYPRN PRN moderate 03/24/24 03/24/24 History
pain
Physical Exam
Vital Signs
Vital Signs
Temp Pulse Resp BP Pulse Ox
99 F 92 16 143/78 95
03/27/24 07:00 03/27/24 09:18 03/27/24 09:18 03/27/24 07:00 03/27/24 09:18
Lab / Testing Results
Laboratory Results
03/27/24 06:46
03/26/24 08:11
Physical Exam
General: Well Developed, Well Nourished and No Apparent Distress
HEENT: Normocephalic and Anicteric
Respiratory: Non Labored Respirations
Cardiac: Regular Rhythm
Breast: N/A
GI: Soft, Non Tender and Non Distended
Rectal: Deferred by Provider
Genito-urinary: No Costovertebral Tend
Musculoskeletal: No Edema
Skin: Warm and Dry
Neuro: AO x 3, No Motor Deficits and Nonfocal/Grossly Intact
Psych: Calm and Intact Judgement
Assessment / Plan
-
Acute bacterial prostatitis
cUTI (E. Coli)
Leukocytosis - improving
CTAP w/o IV contrast => mild circumferential urinary bladder wall thickening, 3 mm non-obstructing left upper pole stone, colonic diverticulosis w/o evidence of acute diverticulitis.
UCx => E. Coli
BCx => NGTD
- Trend fever curve and WBC
- Consider switch to IV Levaquin w/ conversion to PO course on d/c for prostatic penetration based
- F/U with me as an outpatient in 1-2 mo - patient wishes to establish urologic care @
D/w patient and spouse.
Data Reviewed
-
Total Time Spent with Patient (in minutes): [address] Scan: Image personally visualized and interpreted, Report Reviewed by Me, Discussed with Physician, Discussed with Patient and Discussed with Family
Lab Data: Labs Reviewed, Discussed with Physician, Discussed with Patient and Discussed with Family
Old Records: Reviewed
--- NOTE | 2024-03-27 10:23 | W.PN.HOSP.TC ---
Today's Communication/Plan
-
Valacyclovir
cont levaquin
Assessment / Plan
Assessment / Plan
73yo M M with COPD, BPH, HLD, recent R ankle replacement on 02/24/24 by in came with 1 day of nausea, fevers and malaise, found leukocytosis in ED. ALso complained of foul smelling urine. UA concerning for infection. CT showed
non-obstructing nephrolithiasis and possible renal cyst that will need to be followed up with outpatient MRI. Patient feeling much better after fluids and Abx, however has prolonged fevers, raising suspicion for prostatitis
A/P
#Fever, leukocytosis, 2/2 acute bacterial prostatitis
#Non-obstructing nephrolithiasis
#BPH
Ucx - E.coli, pansensitive - Levaquin
Bcx NTD
with persistent fevers -- cannot rule out prostatitis
CG/chlam PCR neg
Urology consult
ID consult
#Shingles
lesion appeared on 03/27/24 limited to one dermatome on upper lip
Valacyclovir started
Contact precautions
#Recent R ankle replacement
PT/OT
sutures scheduled to be removed on 03/29/24
Scar is well healing well, no exudate
transient swelling noted by patient, but might be 2/2 increased ambulation
No signs of joint warmth or redness, discussed with podiatry: Patient can continue NWB to RLE in CAM boot
ankle XR: Right total ankle arthroplasty without evidence of hardware complication
ESR WNL CRP minimally elevated
#COPD not in exacerbation
#BPH
#Neuropathy
watch for urinary retention
cont home meds
#hepatic cysts
no follow up advised
#3mm L non-obstructing nephrolithiasis
hydration
#Hx of spinal fusion
#DJD
tylenol
PT/OT
DVT ppx - on ASA 325mg as per podiatry, reasonable to cont
Full code
I have spent at least 57min reviewing chart, test results, communication with consultants and direct patient care
Anticipated Discharge: > 48 hours
Subjective/Interval History
-
Date of Service: March 27, 2024
Objective Data
-
Labs:
Laboratory Results
03/27/24
06:46
WBC 8.8
Hgb 13.0
Hct 39.0
Plt Count 223
Vital Signs:
Vital Signs
Temp Pulse Resp BP Pulse Ox
99 F 92 16 143/78 95
03/27/24 07:00 03/27/24 09:18 03/27/24 09:18 03/27/24 07:00 03/27/24 09:18
I&O
03/26/24 03/27/24 03/28/24
06:59 06:59 06:59
Intake Total 2640 / 2640 1020 / 1020 480 / 480
Output Total 1605 / 1605 1450 / 1450 1000 / 1000
Balance 1035 / 1035 -430 / -430 -520 / -520
Review of Systems
-
History Source: Patient
All other systems: Reviewed and negative
Skin: Reports Rash (upper lip R)
Physical Exam
-
General: No Apparent Distress
HEENT: Normocephalic and Other
Skin: Other (rash over philtrium and extending to R upper lip)
Neuro: Awake, Alert, Oriented and AO x 3
Psych: Calm
--- NOTE | 2024-03-27 11:39 | W.PN.ID1 ---
Date of Service
Date of Service: March 27, 2024
Today's Communication
Transition Levaquin to the oral route. Continue with Valtrex.
Assessment / Plan
Fevers
- improved
Complicated urinary tract infection 2* E. coli
Suspected prostatitis
- PSA elevated supporting the dx.
Leukocytosis
- improved
S/p recent right ankle surgery
Orolabial HSV
Asthma
Diverticulitis
Recommendations:
Transition Levaquin to the oral route. Continue for an additional 14 days.
Agree with initiation of Valtrex.
Chief Complaint
-: UTI
Subjective / Review of Systems
Patient seen and examined. Overall feeling improved, although has noted an outbreak of oral labial HSV. He reports a history of cold sores in the past.
Vital Signs / Physical Exam
Vital Signs
Vital Signs
Temp Pulse Resp BP Pulse Ox
99 F 92 16 143/78 95
03/27/24 07:00 03/27/24 09:18 03/27/24 09:18 03/27/24 07:00 03/27/24 09:18
Physical Exam
Constitutional: No Acute Distress, Comfortable and Non-toxic
Oropharyngeal: Other (Oral labial HSV noted right upper lip)
Pulmonary: Non Labored
Gastrointestinal: Non Distended
Neurological: Awake and Alert
Psychological: Calm
Objective Data
Lab Data
Lab Results
03/27/24 06:46
03/26/24 08:11
ESR 4 mm/hour (0-20) 03/24/24 14:07
Estimated Creat Clear 89 ml/min 03/26/24 08:11
Lactic Acid 1.2 mmol/L (0.7-2.0) 03/24/24 14:07
Lactic Acid Cancelled 03/24/24 14:07
Total Bilirubin 0.9 mg/dl (0.2-1.3) 03/25/24 07:35
AST 26 U/L (17-59) 03/25/24 07:35
ALT 17 U/L (0-50) 03/25/24 07:35
Alkaline Phosphatase 69 U/L (38-126) 03/25/24 07:35
C-Reactive Protein 11.50 mg/L (0.0-10.00) H 03/24/24 14:07
Most recent labs reviewed.
Micro Results:
03/24/24 18:56 Blood Culture - Preliminary
Blood/Venous No Growth in 48 hours- Final report to follow
03/26/24 13:03 Chlamydia trachomatis (PCR) - Final
Urine Neisseria gonorrhoeae (PCR) - Final
03/24/24 14:07 Blood Culture - Preliminary
Blood/Venous No Growth in 48 hours- Final report to follow
03/24/24 14:11 Urine Culture - Final
Urine Escherichia coli
03/24/24 14:07 Influenza Types A & B (BRANDIN) - Final
Nasal Swab Negative for Influenza A & B, NAAT
Negative results must be combined with clinical observations
and patient history.
Nucleic Acid Amplification test (NAAT)performed on the
[employer] platform.
Urine Culture Final 03/24/24
CC: Greater than 100,000 CFU/ML Escherichia coli
Organism 1 Escherichia coli
1. Escherichia coli
M.I.C. RX
--------- ---
Amoxicillin/Potas. Clavulanate <=8/4 S
Ampicillin <=8 S
Ampicillin/Sulbactam <=4/2 S
Aztreonam <=4 S
Cefazolin <=2 S
Ertapenem <=0.5 S
Ciprofloxacin <=0.25 S
Gentamicin <=2 S
Meropenem <=1 S
Nitrofurantoin-Urine Only <=32 S
Piperacillin/Tazobactam <=8 S
Tetracycline <=4 S
Tobramycin <=2 S
Trimethoprim/Sulfamethoxazole <=2/38 S
Imaging:
03/24/2024 CT abdomen/pelvis without contrast: Mild circumferential urinary bladder wall thickening which may be underdistention or possible cystitis. A 3 mm nonobstructing stone is in the superior pole of left kidney. Colonic diverticulosis
without evidence of acute diverticulitis. Please see full dictation for additional detail.
Care Review
Plan reviewed with: Physician (Hospitalist)
[2024-03-27] MEDS: VALTREX 1000 MG PO ×3 (11:43→21:00)
[2024-03-27] MEDS: LEVAQUIN 750 MG PO (12:07)
[2024-03-27 15:00] VITALS: BP 153/85
[2024-03-27] MEDS: ASPIRIN 325 MG PO (21:00)
[2024-03-27] MEDS: PRAVACHOL 40 MG PO (21:01)
[2024-03-27] MEDS: NEURONTIN 300 MG PO (21:01)
[2024-03-27 23:05] VITALS: BP 153/86
[2024-03-28 00:25] VITALS: BP 135/69
[2024-03-28] MEDS: VALTREX 1000 MG PO (08:19)
[2024-03-28] MEDS: FLOMAX 0.8 MG PO (08:20)
[2024-03-28] MEDS: LEVAQUIN 750 MG PO (08:20)
[2024-03-28] MEDS: SYMBICORT 160/4.5 MCG INHALER 2 PUFF INH (09:17)
[2024-03-28 09:35] VITALS: BP 156/90
--- NOTE | 2024-03-28 09:44 | W.PN.UPDATE ---
Update Note
Progress Note Update
Acute bacterial prostatitis
E. Coli cUTI
WBC normalized
Cr WNL
UCx => E. Coli
BCx x2 => NGTD
PSA expectedly elevated (>66) in context of active bacterial prostatitis
Prior PSAs WNL - checked on annual basis w/ [facility] [place]
NICOLAS deferred in light of current infection
Plan
- PO Levaquin x14 day course per ID on discharge
- Continue tamsulosin 0.4 mg qhs
- F/U with Dr. Nielsen in 1-2 mo - pt wishes to establish urologic care locally @
D/w pt and spouse
D/w Hospital Medicine
D/w ID
--- NOTE | 2024-03-28 10:55 | W.PN.HOSP.TC ---
Today's Communication/Plan
-
cardio consult
d/c afterwards if no additional studies planned
Assessment / Plan
Assessment / Plan
73yo M M with COPD, BPH, HLD, recent R ankle replacement on 02/24/24 by in came with 1 day of nausea, fevers and malaise, found leukocytosis in ED. ALso complained of foul smelling urine. UA concerning for infection. CT showed
non-obstructing nephrolithiasis and possible renal cyst that will need to be followed up with outpatient MRI. Patient feeling much better after fluids and Abx, however has prolonged fevers, raising suspicion for prostatitis, started on Levaquin as
per Ucx sensoitivities and recommended for 2 week course. Found [facility] on 03/28/24
A/P
#Fever, leukocytosis, 2/2 acute bacterial prostatitis
#Non-obstructing nephrolithiasis
#BPH
Ucx - E.coli, pansensitive - Levaquin
Bcx NTD
with persistent fevers -- cannot rule out prostatitis
CG/chlam PCR neg
Urology consult
ID consult: levaquin x14 days
#Shingles
lesion appeared on 03/27/24 limited to one dermatome on upper lip
Valacyclovir started
Contact precautions
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
CHADSVASc 2 - Eliquis
Cardiology
#Essential HTN
Lisinopril and BMP in 2-4 weeks with PCP
#Recent R ankle replacement
PT/OT
sutures scheduled to be removed on 03/29/24
Scar is well healing well, no exudate
transient swelling noted by patient, but might be 2/2 increased ambulation
No signs of joint warmth or redness, discussed with podiatry: Patient can continue NWB to RLE in CAM boot
ankle XR: Right total ankle arthroplasty without evidence of hardware complication
ESR WNL CRP minimally elevated
Now no need in ASA since Eliquis started
#COPD not in exacerbation
#BPH
#Neuropathy
watch for urinary retention
cont home meds
#hepatic cysts
no follow up advised
#3mm L non-obstructing nephrolithiasis
hydration
#Hx of spinal fusion
#DJD
tylenol
PT/OT
DVT ppx - on ASA 325mg as per podiatry, reasonable to cont
Full code
I have spent at least 57min reviewing chart, test results, communication with consultants and direct patient care
Anticipated Discharge: Within 24 hours
Subjective/Interval History
-
Date of Service: March 28, 2024
Objective Data
-
Vital Signs:
Vital Signs
Temp Pulse Resp BP Pulse Ox
98.2 F 84 18 156/90 94
03/28/24 09:35 03/28/24 09:35 03/28/24 09:35 03/28/24 09:35 03/28/24 09:35
I&O
03/27/24 03/28/24 03/29/24
06:59 06:59 06:59
Intake Total 1020 / 1020 960 / 960
Output Total 1450 / 1450 1000 / 1000
Balance -430 / -430 -40 / -40
Review of Systems
-
History Source: Patient
All other systems: Reviewed and negative
Physical Exam
-
General: No Apparent Distress
HEENT: Normocephalic
Respiratory: Clear to Auscultation
Cardiac: Irregular Rhythm; Negative Tachycardic
GI: Soft, Nontender and Nondistended
Musculoskeletal: No Clubbing and No Cyanosis
Skin: Warm
Neuro: Awake, Alert, Oriented and AO x 3
Psych: Calm
[2024-03-28] MEDS: ELIQUIS 5 MG PO (11:28)
[2024-03-28] MEDS: ZESTRIL 5 MG PO (11:28)
[2024-03-28] MEDS: TOPROL XL 25 MG PO (13:12)
--- NOTE | 2024-03-28 13:13 | W.DCSUMMARY ---
Addendum entered and electronically signed by Brice Rodriguez MD 03/28/24 14:53:
ASA stopped upon d/c
Original Note:
Discharge Summary
Discharge Data
Date of Admission: 03/24/24
Date of Discharge: 03/28/24
-
Pending Results: No
Hospital Course
73yo M M with COPD, BPH, HLD, recent R ankle replacement on 02/24/24 by in came with 1 day of nausea, fevers and malaise, found leukocytosis in ED. ALso complained of foul smelling urine. UA concerning for infection. CT showed
non-obstructing nephrolithiasis and possible renal cyst that will need to be followed up with outpatient MRI. Patient feeling much better after fluids and Abx, however has prolonged fevers, raising suspicion for prostatitis, started on Levaquin as
per Ucx sensoitivities and recommended for 2 week course. Found [facility] on 03/28/24 - cardiology recommended anticoagulation and toprol, so lisinopril will not be Rx. They will arrange follow up testing in early Mar. Medically stable for d/c home
with planned follow up by podiatry on 03/29/24 for postOP suture removal
I have spent at least 37min reviewing chart, test results, communication with consultants and direct patient care
Patient was manahed for:
#Fever, leukocytosis, 2/2 acute bacterial prostatitis
#Non-obstructing nephrolithiasis
#BPH
#Shingles vs labial herpes
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
#Essential HTN
#Recent R ankle replacement
#COPD not in exacerbation
#BPH
#Neuropathy
#hepatic cysts
#3mm L non-obstructing nephrolithiasis
#Hx of spinal fusion
#DJD
Discharge Plan
-
Patient Disposition: Home (Routine Discharge)
Discharge Diagnosis/Procedures: Prostatitis, A.flutter
Diet: Regular
Activity: As tolerated
Driving Restrictions: As prior to admission
Blood Work: BMP in 2-4 weeks with PCP
Referrals:
Odilon Nielsen MD [Active] - (Please call [facility] to make a follow up appointment with Dr. Nielsen in 2 months. )
Alan Schmitz MD [Active] - in less than 1 week
Art Mtz MD [Family Provider] -
Prescriptions:
New
valacyclovir 500 mg Tablet
1,000 mg PO TID Qty: 18 0RF
levofloxacin 750 mg Tablet
750 mg PO DAILY Qty: 12 0RF
Eliquis 5 mg Tablet
5 mg PO BID Qty: 60 0RF
metoprolol succinate 25 mg Tablet Extended Release 24 Hr
25 mg PO DAILY Qty: 30 0RF
Continued
fluticasone propionate 1 SPRAY spray,suspension
2 spray intranasal DAILYPRN PRN (Reason: nasal congestion, allergies)
pravastatin 40 mg Tablet
40 mg PO HS
tamsulosin 0.4 mg Capsule
0.4 mg PO DAILY
budesonide-formoterol [Symbicort] 160-4.5 mcg/actuation Hfa Aerosol Inhaler
1 - 2 puff INHALATION R BID
sildenafil 50 mg Tablet
50 mg PO DAILYPRN PRN (Reason: ED)
albuterol sulfate 2.5 mg /3 mL (0.083 %) Solution For Nebulization
2.5 mg INHALATION R Q6HPRN PRN (Reason: SOB)
albuterol sulfate 90 mcg/actuation Hfa Aerosol Inhaler
2 puff INHALATION R Q6HPRN PRN (Reason: SOB, Wheezes)
aspirin 325 mg Tablet
325 mg PO HS
gabapentin 300 mg Capsule
300 mg PO HS
ibuprofen 600 mg Tablet
1,800 mg PO DAILYPRN PRN (Reason: moderate pain)
Discharge Orders:
Discharge Patient (As Directed); Ordered 03/28/24
Ordered By: Brice Rodriguez
Discharge Date and Time
Print Language: JAPANESE
--- NOTE | 2024-03-28 13:20 | CM ---
Addendum entered by Malissa Felipe 03/28/24 14:42:
Spoke with pharmacist Philippe
cost of Eliquis 5mg BID is $47.00/mo
tt hospitalist & updated patient.
Original Note:
tt from hospitalist Dr. Rodriguez
request summers check for Eliquis 5mg BID
Called [facility] pharmacy and left message for pharmacist.
Coupons given to patient
IMM explained & signed.
No needs.
PLAN: Home, no needs
to transport
--- NOTE | 2024-03-28 13:58 | CON.CAR ---
Consultation
Consultation Request
Date/Time Consultation Requested: March 28, 2024
Date/Time Consultation Performed: March 28, 2024
Requesting Provider: Hospitalist
Performing Provider: Nadir
Reason for Consultation: New onset atrial fibrillation
Medical History
-
Chief Complaint: New onset atrial fibrillation
History of Present Illness:
73-year-old male who we are consulted on for asymptomatic new onset rate controlled atrial fibrillation. He presented with sinus rhythm with PACs. His reason for admission is UTI and he has had a recent ankle replacement therapy. No prior history
of atrial fibrillation. No recent cardiac testing within the last 10 years. Rare alcohol.
Past Medical History
Past Medical History: Arrhythmias
Past Surgical History: Orthopedic
Social History
Tobacco: Non-Smoker
Alcohol: Occasional
Drug: None
Personal:
Living: With Family
Employment: Retired
Family History
Family History: Reviewed & Not Pertinent
Allergies / Home Medications
Allergy/AdvReac Type Severity Reaction Status Date / Time
pollen extracts Allergy Congestion Verified 02/23/24 06:07
�Medication �Instructions �Recorded �Confirmed �Type
fluticasone propionate 50 2 spray intranasal DAILYPRN PRN 03/01/17 03/24/24 History
mcg/actuation nasal nasal congestion, allergies
spray,suspension
budesonide-formoterol HFA 160 1 - 2 puff inhalation R BID 01/02/24 03/24/24 History
mcg-4.5 mcg/actuation aerosol Lung/Breathing Issues
inhaler (Symbicort)
pravastatin 40 mg tablet 40 mg PO HS High Cholesterol 01/02/24 03/24/24 History
sildenafil 50 mg tablet 50 mg PO DAILYPRN PRN ED 01/02/24 03/24/24 History
tamsulosin 0.4 mg capsule 0.4 mg PO DAILY Urinary Issue 01/02/24 03/24/24 History
albuterol sulfate 2.5 mg/3 mL 2.5 mg inhalation R Q6HPRN PRN SOB 02/16/24 03/24/24 History
(0.083 %) solution for nebulization
albuterol sulfate 90 mcg/actuation 2 puff inhalation R Q6HPRN PRN 02/16/24 03/24/24 History
aerosol inhaler SOB, Wheezes
aspirin 325 mg tablet 325 mg PO HS Blood Clot 03/24/24 03/24/24 History
Prevention/Tx
gabapentin 300 mg capsule 300 mg PO HS Neurological Condition 03/24/24 03/24/24 History
ibuprofen 600 mg tablet 1,800 mg PO DAILYPRN PRN moderate 03/24/24 03/24/24 History
pain
apixaban 5 mg tablet (Eliquis) 5 mg PO BID #60 tabs 03/28/24 Rx
levofloxacin 750 mg tablet 750 mg PO DAILY #12 tabs 03/28/24 Rx
metoprolol succinate 25 mg 25 mg PO DAILY #30 tabs 03/28/24 Rx
tablet,extended release 24 hr
valacyclovir 500 mg tablet 1,000 mg (2 x 500 mg) PO TID #18 03/28/24 Rx
tabs
Review of Systems
-
All other systems: Negative unless noted
Cardiac: No Symptoms
Physical Exam
Vital Signs
Temp Pulse Resp BP Pulse Ox
98.2 F 84 18 141/76 94
03/28/24 09:35 03/28/24 09:35 03/28/24 09:35 03/28/24 13:12 03/28/24 09:35
Lab Results
03/27/24 06:46
03/26/24 08:11
Physical Exam
General: Well Developed and Well Nourished
HEENT: Normocephalic and Anicteric
Respiratory: Clear
Cardiac: Irregular Rhythm
Breast: Deferred by me
GI: Soft, Non Tender and Non Distended
Rectal: Deferred by Provider
Musculoskeletal: No Clubbing, No Cyanosis and No Edema
Skin: Warm and Dry
Neuro: Awake, Alert and Oriented
Hematologic/Lymphatic: No Lymphadenopathy
Psych: Calm
Impression / Plan
-
73yo M M with COPD, BPH, HLD, recent R ankle replacement on 02/24/24 by in came with 1 day of nausea, fevers and malaise, found leukocytosis in ED. ALso complained of foul smelling urine. UA concerning for infection. CT showed
non-obstructing nephrolithiasis and possible renal cyst that will need to be followed up with outpatient MRI. Patient feeling much better after fluids and Abx, however has prolonged fevers, raising suspicion for prostatitis, started on Levaquin as
per Ucx sensoitivities and recommended for 2 week course. Found A.flutter on 03/28/24
Impression:
Consulted for new onset atrial fibrillation
History of first-degree AV block HI 220 ms
Recent ankle replacement
Admitted with 1 day of fever nausea and malaise
Leukocytosis
Varicella-zoster acute
Urinary tract infection acute�E. coli pansensitive
Nephrolithiasis
Renal cyst
History of essential hypertension
Recommendations:
He was being discharged home by the primary service when he was noted to have atrial fibrillation. This was asymptomatic
-Initiate Eliquis 5 mg twice daily
-Metoprolol 25 mg daily for rate control
-Reviewed his sinus rhythm ECG with a HI that is relatively stable at 220 ms so would initiate beta-jany
-I have no objection to discharge today
-Maintain telemetry if he remains hospitalized
-We will call the patient on Friday to arrange for outpatient echocardiogram, treadmill Lexiscan ischemic stress test, outpatient ambulatory monitor, and office visit with me to discuss long-term management of his atrial fibrillation. As this is
asymptomatic it would be reasonable to continue NOAC and beta-jany and perform outpatient testing as above
Data Reviewed
-
EKG: Tracing Personally Visualized and interpreted
Medical Tests (Nuc Med, Echo etc): Image Personally Visualized and interpreted
Labs: Labs Reviewed by me
Old Records: Requested
== END 2024-03-28 15:44 | disposition home or self-care (01) | DRG 728 ==
LOC: 4 WEST ACU 18:41
PROVIDERS: Emergency Medicine; ADMITTING PHYSICIAN Internal Medicine; CONSULT PHYSICIAN Internal Medicine Cardiovascular Disease; CONSULT PHYSICIAN Internal Medicine Infectious Disease; CONSULT PHYSICIAN Surgery; EMERGENCY PHYSICIAN Emergency Medicine; FAMILY PHYSICIAN Family Medicine; OTHER PHYSICIAN Student in an Organized Health Care Education/Training Program
DX: N41.0 Acute prostatitis (principal); I48.92 Unspecified atrial flutter; E78.00 Pure hypercholesterolemia, unspecified; N30.90 Cystitis, unspecified without hematuria; B96.20 Unspecified Escherichia coli [E. coli] as the cause of diseases classified elsewhere; G62.9 Polyneuropathy, unspecified; I10 Essential (primary) hypertension; I44.0 Atrioventricular block, first degree; J44.89 Other specified chronic obstructive pulmonary disease; N20.0 Calculus of kidney; B02.9 Zoster without complications; I48.91 Unspecified atrial fibrillation; K76.89 Other specified diseases of liver; N40.0 Benign prostatic hyperplasia without lower urinary tract symptoms; Z96.661 Presence of right artificial ankle joint; Z79.51 Long term (current) use of inhaled steroids; Z79.899 Other long term (current) drug therapy; Z98.1 Arthrodesis status; Z79.82 Long term (current) use of aspirin; Z11.52 Encounter for screening for COVID-19
CPT/HCPCS: 73600; 74176; 80048; 80053; 81003; 81015; 83605; 85025; 85652; 86140; 86803; 87040; 87077; 87086; 87186; 87491; 87502; 87591; 87811; 93005; 94640; 96361; 96374; 97161; 97165; 99285; G0103

== ENCOUNTER → 2024-04-22 09:18 | Outpatient (REF) | payer OTHER, SELFPAY | LOC: HWRCS 09:18 | PROVIDERS: ATTENDING PHYSICIAN Internal Medicine Cardiovascular Disease; FAMILY PHYSICIAN Family Medicine | DX: I48.91 Unspecified atrial fibrillation (principal) | CPT/HCPCS: 93306 ==